=== PATIENT | male | born 1995 | race Caucasian/White ===

== ENCOUNTER 2020-07-01 00:23 | Emergency (ER) | payer OTHER ==
[~2020-07-01] VITALS: Ht 177.8 cm; Wt 61.7 kg
[2020-07-01 03:47] VITALS: BP 133/77
== END 2020-07-01 04:04 | disposition home or self-care (01) ==
LOC: M ED 00:23
DX: F32.0 Major depressive disorder, single episode, mild (principal)

== ENCOUNTER 2020-08-04 09:47 | Emergency (ER) | payer OTHER ==
[~2020-08-04] VITALS: Ht 177.8 cm; Wt 64.5 kg
--- OUTSIDE RECORDS SUMMARY | 2020-08-04 09:55 | CCD ---
Author Author [facility] Organization [facility] Address Unknown Phone Unavailable Support Name Relationship Address Phone [facility] Next Of Kin [address] [place] [address] Unavailable WAGER, FC SGT [place] [address] [address] [address] MATHEW ABURTO Next Of Kin [place], [place] Next Of Kin Unknown Unavailable FAUSTINO ELIZABETH Next Of Kin [address] [place] [address] FAUSTINO BEAVER Next Of Kin [address] [phone] Re-disclosure Warning The records that you are about to access may contain information from federally-assisted alcohol or drug abuse programs. If such information is present, then the following federally mandated warning applies: This information has been disclosed to you from records protected by federal confidentiality rules (42 CFR part 2). The federal rules prohibit you from making any further disclosure of this information unless further disclosure is expressly permitted by the written consent of the person to whom it pertains or as otherwise permitted by 42 CFR part 2. A general authorization for the release of medical or other information is NOT sufficient for this purpose. The Federal rules restrict any use of the information to criminally investigate or prosecute any alcohol or drug abuse patient.The records that you are about to access may contain highly sensitive health information, the redisclosure of which is protected by Article 27-F of the [facility] Public Health law. If you continue you may have access to information: Regarding HIV / AIDS; Provided by facilities licensed or operated by the [facility] Office of Mental Health; or Provided by the [facility] Office for People With Developmental Disabilities. If such information is present, then the following [facility] mandated warning applies: This information has been disclosed to you from confidential records which are protected by state law. State law prohibits you from making any further disclosure of this information without the specific written consent of the person to whom it pertains, or as otherwise permitted by law. Any unauthorized further disclosure in violation of state law may result in a fine or retirement sentence or both. A general authorization for the release of medical or other information is NOT sufficient authorization for further disc losure. Insurance Providers Payer name Policy type / Coverage type Policy ID Covered constitution party ID Covered constitution party's relationship to christine Policy Christine Plan Information [facility] ACTIVE DUTY [id number] SP [id number] [place] MEDICAID [id number] [facility] 7 [id number] Lu[place] Medicaid F [id number] SELF [id number] SELF PAY 2 UNAVAILABLE 1 UNAVAILA BLE [facility] SELFINSURE 1 [id number] EXC PLANS 1 [id number] [facility] [id number] SELF PAY UNAVAILABLE UNAVAILA BLE LUAN [facility]P FHP UNAVAILABLE SP UN AVAILABLE
[2020-08-04] MEDS ORDERED: NAPR220C14 PO (09:58)
[2020-08-04] MEDS ORDERED: NS 1,000 ML IV ONE (10:15)
[2020-08-04 10:44] LABS: APPEARANCE, URINE CLOUDY (CLEAR); BACTERIA, URINE AUTO 1+ (NEGATIVE); BILIRUBIN, URINE AUTO NEGATIVE (NEGATIVE); BLOOD, URINE BLOOD 3+ (NEGATIVE); COLOR, URINE AMBER (YELLOW); GLUCOSE, URINE (UA) AUTO 1+ mg/dL (NEGATIVE); KETONE, URINE AUTO NEGATIVE (NEGATIVE); LEUKOCYTE ESTERASE, URINE AUTO 3+ (NEGATIVE); MUCUS, URINE MODERATE (NEGATIVE); NITRITE, URINE AUTO NEGATIVE (NEGATIVE); PROTEIN, URINE AUTO 2+ mg/dL (NEGATIVE); RBC, URINE AUTO TNTC /HPF (0-3); RENAL EPITHELIAL CELLS 2 /HPF; SPECIFIC GRAVITY URINE AUTO 1.028 (1.002-1.035); SQUAMOUS EPITHELIAL CELL UR AU 1 /HPF (0-6); TRANSITIONAL EPITHELIAL AUTO 3 /HPF; WBC, URINE AUTO TNTC /HPF (0-3)
[2020-08-04] MEDS ORDERED: ISOVUE-370 76% 100ML VIAL As Ordered ONE (10:44)
[2020-08-04 10:46] LABS: BASO % 0.2 % (0.0-1.0); EOS % 0.2 % (0.0-3.0); HEMATOCRIT 43.6 % (42.0-52.0); HEMOGLOBIN 14.6 g/dl (13.5-17.5); LYMPH # 1.3 10^3/uL (1.5-5.0); LYMPH % 9.9 % (24.0-44.0); MEAN CORPUSCULAR HEMOGLOBIN 30.7 pg (27.0-33.0); MEAN CORPUSCULAR HGB CONC 33.5 g/dl (32.0-36.5); MEAN CORPUSCULAR VOLUME 91.6 fl (80.0-96.0); MONO % 7.9 % (0.0-5.0); NEUTROPHILS # 10.3 10^3/uL (1.5-8.5); NEUTROPHILS % 81.6 % (36.0-66.0); PLATELET COUNT, AUTOMATED 188 10^3/uL (150-450); RED BLOOD COUNT 4.76 10^6/uL (4.30-6.10); WHITE BLOOD COUNT 12.7 10^3/uL (4.0-10.0)
[2020-08-04 10:55] LABS: INR 1.15; PROTHROMBIN TIME 14.9 SECONDS (12.5-14.3)
[2020-08-04 10:56] LABS: PARTIAL THROMBOPLASTIN TIME 29.1 SECONDS (24.2-38.5)
--- NOTE | 2020-08-04 11:06 | REP ---
INDICATION: trauma 3 days ago right side/flank, hematuria, RUQ pain COMPARISON: None TECHNIQUE: Axial contrast enhanced images from the thoracic inlet to the upper abdomen using 100 ml Isovue 370 intravenous contrast material followed by CT of the abdomen and pelvis. Coronal and sagittal reformations obtained. This CT examination was performed using the following dose reduction techniques: Automated exposure control, adjustment of mA and/or kv according to the patient's size, and use of iterative reconstruction technique. FINDINGS: The bilateral lung craven are well aerated and clear. No consolidation/contusion, effusion, or pneumothorax. The mediastinum is normal including normal thoracic aorta, pulmonary vasculature, and heart/pericardium. No mediastinal injury or hematoma identified. Osseous structures are intact and without evidence for acute injury. IMPRESSION: Normal contrast-enhanced chest CT. No acute mediastinal or pleuroparenchymal process. No evidence for acute thoracic injury. <Electronically signed by Collin Faust > 08/04/20 [id number]
[2020-08-04 11:09] LABS: ALBUMIN 4.3 GM/DL (3.2-5.2); ALT/SGPT 27 U/L (12-78); BILIRUBIN,DIRECT 0.3 MG/DL (0.0-0.2); BILIRUBIN,TOTAL 0.9 MG/DL (0.2-1.0); LIPASE 124 U/L (73-393); SALICYLATE LEVEL < 1.7 MG/DL (5.0-30.0); TOTAL PROTEIN 7.7 GM/DL (6.4-8.2)
--- NOTE | 2020-08-04 11:10 | REP ---
INDICATION: trauma 3 days ago right side/flank, hematuria, RUQ pain. COMPARISON: None TECHNIQUE: Axial contrast-enhanced images from the lung bases to the pubic symphysis using 100 cc Isovue 370 intravenous contrast material. Coronal and sagittal reformations obtained. This CT examination was performed using the following dose reduction techniques: Automated exposure control, adjustment of mA and/or kv according to the patient's size, and the use of iterative reconstruction technique. FINDINGS: No evidence for solid organ injury. Liver, spleen, pancreas, gallbladder, bilateral adrenal glands and kidneys are normal. The enteric system including stomach, small, and large bowel appears normal. No evidence for obstruction or acute inflammatory process. Normal terminal ileum and appendix are identified in the right lower quadrant. Pelvis demonstrates collapsed/under distended bladder and age-appropriate prostate/seminal vesicles. No ascites. No free air. No intraperitoneal or retroperitoneal adenopathy. Abdominal aorta and vasculature appear normal. Musculoskeletal structures are intact and without acute osseous abnormality. IMPRESSION: No acute abdominopelvic pathology or trauma/injury appreciated. Kidneys appear normal. Bladder is collapsed/under distended. <Electronically signed by Collin Faust > 08/04/20 [id number]
--- OUTSIDE RECORDS SUMMARY | 2020-08-04 11:35 | CCD ---
Author Author [facility] Organization [facility] Address Unknown Phone Unavailable Support Name Relationship Address Phone [facility] Next Of Kin [address] [place] [address] Unavailable WAGER, FC SGT Next [place] [address] [address] [address] MATHEW ABURTO Next [place] Kin [place] Next Of Kin Unknown Unavailable FAUSTINO ELIZABETH Next Of Kin [address] [place] [address] FAUSTINO BEAVER Next Of Kin [address] [phone] Re-disclosure Warning The records that you are [...] is protected by Article 27-F of the [facility] Public Health law. If you continue you may have access to information: Regarding HIV / AIDS; Provided by facilities licensed or operated by the [facility] Office of Mental Health; or Provided by the [facility] Office for People With Developmental Disabilities. If such information is present, then the following [facility] mandated warning applies: This information has been [...] law may result in a fine or detention sentence or both. A general authorization for the release of medical or other information is NOT sufficient authorization for further disc losure. Insurance Providers Payer name Policy type / Coverage type Policy ID Covered libertarian ID Covered libertarian's relationship to christine Policy Christine Plan Information [facility] ACTIVE DUTY [id number] SP [id number] [place] MEDICAID [id number] [facility] 7 [id number] Lu[place] Medicaid F [id number] SELF [id number] SELF PAY 2 UNAVAILABLE 1 UNAVAILA BLE [facility] SELFINSURE 1 3 [id number] EXC PLANS 1 [id number] [facility] [id number] SELF PAY UNAVAILABLE UNAVAILA BLE LUAN CHP FHP UNAVAILABLE SP UN AVAILABLE
[2020-08-04] MEDS ORDERED: cefTRIAXone SOD 1 GM in D5W MINI-BAG PLUS 50 ML IV ONE (11:45)
[2020-08-04] MEDS ORDERED: CEFD300CAP PO (12:31)
[2020-08-04 12:38] VITALS: BP 116/68
== END 2020-08-04 12:40 | disposition home or self-care (01) ==
LOC: M ED 09:47
DX: S39.91XA Unspecified injury of abdomen, initial encounter (principal); V00.311A Fall from snowboard, initial encounter; Y92.9 Unspecified place or not applicable; Y93.23 Activity, snow (alpine) (downhill) skiing, snowboarding, sledding, tobogganing and snow tubing; Y99.9 Unspecified external cause status; N39.0 Urinary tract infection, site not specified; R31.9 Hematuria, unspecified; G89.29 Other chronic pain; M54.9 Dorsalgia, unspecified; F33.9 Major depressive disorder, recurrent, unspecified
CPT/HCPCS: 71260; 74177; 80047; 80076; 81001; 83690; 85025; 85610; 85730; 86850; 86900; 86901; 96361; 96365; 99284; G0480; J0696; Q9967

== ENCOUNTER 2020-08-13 19:20 | Emergency (ER) | payer OTHER ==
[~2020-08-13] VITALS: Ht 177.8 cm; Wt 66.7 kg
[~2020-08-13 19:20] MED LIST: CEFD300CAP PO; NAPR220C14 PO
--- OUTSIDE RECORDS SUMMARY | 2020-08-13 19:29 | CCD ---
Author Author [facility] Organization [facility] Address Unknown Phone Unavailable Support Name Relationship Address Phone [facility] Next Of Kin [address] [place] [address] Unavailable WAGER, FC SGT [place] [address] [address] [address] MATHEW ABURTO Next [place] Kin [place] Next Of Kin Unknown Unavailable FAUSTINO ELIZABETH Next Of Kin [address] [place] [address] FAUSTINO BEAVER Next Of Kin [address] [phone] Re-disclosure Warning The records that you are [...] is protected by Article 27-F of the [facility] Public Health law. If you continue you may have access to information: Regarding HIV / AIDS; Provided by facilities licensed or operated by the [facility] Office of Mental Health; or Provided by the [facility] Office for People With Developmental Disabilities. If such information is present, then the following [facility] mandated warning applies: This information has [...] type / Coverage type Policy ID Covered democrat ID Covered democrat's relationship to christine Policy Christine Plan Information [facility] ACTIVE DUTY [id number] SP [id number] LU[place] MEDICAID [id number] [facility] 7 [id number] Lu[place] Medicaid F [id number] SELF [id number] SELF PAY 2 UNAVAILABLE 1 UNAVAILA BLE [facility] SELFINSURE 1 [id number] EXC PLANS 1 [id number] [facility] [id number] SELF PAY UNAVAILABLE UNAVAILA BLE [facility]P FHP UNAVAILABLE SP UN AVAILABLE
[2020-08-13 20:33] LABS: HEMATOCRIT 42.6 % (42.0-52.0); HEMOGLOBIN 14.4 g/dl (13.5-17.5); MEAN CORPUSCULAR HEMOGLOBIN 29.9 pg (27.0-33.0); MEAN CORPUSCULAR HGB CONC 33.8 g/dl (32.0-36.5); MEAN CORPUSCULAR VOLUME 88.4 fl (80.0-96.0); PLATELET COUNT, AUTOMATED 307 10^3/uL (150-450); RED BLOOD COUNT 4.82 10^6/uL (4.30-6.10); WHITE BLOOD COUNT 7.2 10^3/uL (4.0-10.0)
--- NOTE | 2020-08-13 21:07 | ECGEPIP ---
[facility] - ED Test Date: 2020-08-13 Pat Name: GLADIS TAYLOR Department: Room: - Gender: Male Manager Mechanical: : 1995 Requested By: KENNEY Putnam Order Number: [id number] Reading MD: Guy Heath Measurements Intervals [place] Rate: 72 P: 52 MA: 152 QRS: 70 QRSD: 98 T: 58 QT: 379 QTc: 417 Interpretive Statements SINUS RHYTHM WITH SINUS ARRHYTHMIA INCOMPLETE RIGHT BUNDLE BRANCH BLOCK BENIGN EARLY REPOLARIZATION NO PRIORS FOR COMPARISON Electronically Signed on 08-13-2020 21:06:35 EST by Guy Heath
[2020-08-13 21:10] LABS: AMPHETAMINES LEVEL URINE NEGATIVE (NEGATIVE); BARBITURATES URINE NEGATIVE (NEGATIVE); BENZODIAZEPINES URINE NEGATIVE (NEGATIVE); CANNABINOIDS URINE NEGATIVE (NEGATIVE); COCAINE METABOLITE URINE NEGATIVE (NEGATIVE); METHADONE URINE NEGATIVE (NEGATIVE); OPIATES URINE NEGATIVE (NEGATIVE); PHENCYCLIDINE URINE NEGATIVE (NEGATIVE)
[2020-08-13 21:21] LABS: ALBUMIN 4.3 GM/DL (3.2-5.2); ALT/SGPT 30 U/L (12-78); BILIRUBIN,DIRECT 0.2 MG/DL (0.0-0.2); BILIRUBIN,TOTAL 0.4 MG/DL (0.2-1.0); BLOOD UREA NITROGEN 20 MG/DL (7-18); CALCIUM LEVEL 9.3 MG/DL (8.5-10.1); CARBON DIOXIDE LEVEL 30 MEQ/L (21-32); CHLORIDE LEVEL 103 MEQ/L (98-107); CREATININE FOR GFR 0.97 MG/DL (0.70-1.30); ETHYL ALCOHOL (ETHANOL) < 0.003 % (0.000-0.010); GLOMERULAR FILTRATION RATE > 60.0 (>60); GLUCOSE, FASTING 116 MG/DL (70-100); POTASSIUM SERUM 3.9 MEQ/L (3.5-5.1); SALICYLATE LEVEL < 1.7 MG/DL (5.0-30.0); SODIUM LEVEL 138 MEQ/L (136-145); TOTAL PROTEIN 7.9 GM/DL (6.4-8.2)
[2020-08-13 21:22] LABS: ACETAMINOPHEN LEVEL < 2.0 UG/ML (10.0-30.0)
[2020-08-13 22:16] LABS: RSV AMPLIFICATION NEGATIVE (NEGATIVE)
[2020-08-14 00:32] VITALS: BP 116/78
--- OUTSIDE RECORDS SUMMARY | 2020-08-14 00:42 | CCD ---
Author Author [facility] Organization [facility] Address Unknown Phone Unavailable Support Name Relationship Address Phone [facility] Next Of Kin [address] [place] [address] Unavailable WAGER, FC SGT [place] [address] [address] [address] MATHEW ABURTO Next Of Kin [place], [place] Next Of Kin Unknown Unavailable FAUSTINO ELIZABETH Next Of Kin [address] [place] [address] FAUSTINO BEAVER Next Of Kin [address] [phone] Re-disclosure Warning The records that you are [...] of the [facility] Public Health law. If you continue you may have access to information: Regarding HIV / AIDS; Provided by facilities licensed or operated by the [facility] Office of Mental Health; or Provided by the [facility] Office for People With Developmental Disabilities. If such information is present, then the following [facility] mandated warning applies: This information has been [...] law may result in a fine or nursing home sentence or both. A general authorization for the release of medical or other information is NOT sufficient authorization for further disc losure. Insurance Providers Payer name Policy type / Coverage type Policy ID Covered alliance party ID Covered alliance party's relationship to christine Policy Christine Plan Information [facility] ACTIVE DUTY [id number] SP [id number] LUAN MEDICAID [id number] [facility] 7 [id number] Lu[place] Medicaid F [id number] SELF [id number] SELF PAY 2 UNAVAILABLE 1 UNAVAILA BLE [facility] SELFINSURE 1 [id number] EXC PLANS 1 [id number] [facility] [id number] SELF PAY UNAVAILABLE UNAVAILA BLE [facility]AN [facility]P FHP UNAVAILABLE SP UN AVAILABLE
== END 2020-08-14 00:39 ==
LOC: M ED 19:20
DX: F32.9 Major depressive disorder, single episode, unspecified (principal); R45.851 Suicidal ideations; I45.19 Other right bundle-branch block; G89.29 Other chronic pain; M54.9 Dorsalgia, unspecified; Z79.899 Other long term (current) drug therapy
CPT/HCPCS: 80048; 80076; 80307; 84443; 85027; 87631; 93005; 99284; G0480

== ENCOUNTER 2020-09-05 21:48 | Emergency (ER) | payer OTHER ==
[~2020-09-05] VITALS: Ht 177.8 cm; Wt 63.6 kg
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
[2020-09-05] MEDS ORDERED: REME15TA2 PO (21:57)
[2020-09-05] MEDS ORDERED: PERCOCET 5MG/325MG TAB PO ONE (22:30)
[2020-09-05] MEDS ORDERED: BACLOFEN 10 MG TAB PO ONE (22:30)
--- NOTE | 2020-09-05 22:50 | REPVR ---
PROCEDURE INFORMATION: Exam: XR Right Tibia and Fibula Exam date and time: 09/05/2020 10:20 PM Age: 24 years old Clinical indication: Other: Fell snowboarding TECHNIQUE: Imaging protocol: XR Right tibia and fibula. Views: 2 views. COMPARISON: No relevant prior studies available. FINDINGS: Bones/joints: Normal. No fracture. Soft tissues: Normal. IMPRESSION: Negative right tibia and fibula. Electronically signed by: Pedro Luis Titus On 09/05/2020 22:50:09 PM
--- NOTE | 2020-09-05 22:50 | REPVR ---
PROCEDURE INFORMATION: Exam: XR Right Femur Exam date and time: 09/05/2020 10:20 PM Age: 24 years old Clinical indication: Other: Fell snowboarding TECHNIQUE: Imaging protocol: XR Right femur. Views: 2 views. COMPARISON: No relevant prior studies available. FINDINGS: Bones/joints: Unremarkable. No acute fracture. Soft tissues: Unremarkable. IMPRESSION: Negative right femur. Electronically signed by: Pedro Luis Titus On 09/05/2020 22:50:41 PM
--- OUTSIDE RECORDS SUMMARY | 2020-09-05 22:59 | CCD ---
Author Author [facility] Organization [facility] Address Unknown Phone Unavailable Care Team Providers Care Knifer Up Name Role Phone Colon, Rickie Unavailable Unavailable [...] is protected by Article 27-F of the [place] Public Health law. If you continue you may have access to information: Regarding HIV / AIDS; Provided by facilities licensed or operated by the [facility] Office of Mental Health; or Provided by the [facility] Office for People With Developmental Disabilities. If such information is present, then the following [facility] mandated warning applies: This information [...] allergy No Known Allergies No Known Allergies [facility] Encounters Encounter Providers Location Date Indications Data Source(s ) Outpatient Attender: Ronna Shepardmitter: Rickie ColonConsultant: Rickie Colon 08/14/2020 01:55:00 AM EST Involuntary [facility] Involuntary Inpatient Attender: Rickie ColonAdmitter: Rickie Colon 08/14/2020 01:55:00 AM EST - 08/20/2020 12:19:00 PM EST Involuntary [facility] Involuntary Patient discharged. Outpatient Attender: Ronna Shepardmitter: Rickie ColonConsultant: Rickie Colon 08/14/2020 01:55:00 AM EST Involuntary [facility] Involuntary Outpatient Attender: Ronna Shepardmitter: Rickie ColonConsultant: Rickie Colon 08/14/2020 01:55:00 AM EST Involuntary [facility] Involuntary Outpatient Attender: Morgan AshleyAdmitter: Rickie ColonConsultant: Rickie Colon 08/14/2020 01:55:00 AM EST Involuntary [facility] Involuntary Outpatient Attender: Ronna Shepardmitter: Rickie ColonConsultant: Rickie Colon 08/14/2020 01:55:00 AM EST Involuntary [facility] Involuntary Outpatient Attender: Dannie Carter MDA dmitter: Rickie ColonConsultant: Rickie Colon 08/14/2020 01:55:00 AM EST Involuntary [facility] Involuntary Outpatient Attender: Dannie Carter TIMOTHY dmitter: Rickie ColonConsultant: Rickie Colon 08/14/2020 01:55:00 AM EST Involuntary [facility] Involuntary Outpatient Attender: Ronna Jason PAdmitter: Rickie ColonConsultant: Rickie Colon 08/14/2020 01:55:00 AM EST Involuntary [facility] Involuntary Insurance Providers Payer name Policy type / Coverage type Policy ID Covered libertarian ID Covered libertarian's relationship to christine Policy Christine Plan Information [employer] [id number] SP [id number] SELF PAY [facility] [id number] SP [id number] LUAN MEDICAID [id number] Sylvia 7 [id number] Luan Medicaid F [id number] SELF [id number] SELF PAY 2 UNAVAILABLE 1 UNAVAILA BLE [facility] SELFINSURE 1 [id number] EXC PLANS 1 [id number] [employer] [place] [id number] SELF PAY UNAVAILABLE UNAVAILA BLE LUAN CHP FHP UNAVAILABLE SP UN AVAILABLE Problems, Conditions, and Diagnoses Code Display Name Description Problem Type Effective Dates Data Source(s) G89.29 Other chronic pain G89.29 - Other chronic pain Diagnos is 08/14/2020 01:55:00 AM EST [facility] M54.9 Dorsalgia, unspecified M54.9 - Dorsalgia, unspecified Diagnosis 08/14/2020 01:55:00 AM EST [facility] F41.1 Generalized anxiety disorder F41.1 - Generalized anxiety disorder Diagnosis 08/14/2020 01:55:00 AM EST [facility] F84.0 Autistic disorder F84.0 - Autistic disorder Diagnosis 08/14/2020 01:55:00 AM EST [facility] F43.10 Post-traumatic stress disorder, unspecif ied F43.10 - Post-traumatic stress disorder, unspecified Diagnosis 08/14/2020 01:55:00 AM EST [facility] F33.2 Major depressive disorder, recurrent sev ere without psychotic features F33.2 - Major depressive disorder, recurrent severe without psychotic features Diagnosis 08/14/2020 01:55:00 AM [facility] Results ID Date Data Source [id number] 08/17/2020 04:26:00 [place] [address] HEALTH INFORMATION MANAGEMENT History and Physical Report : [id number] Signed Patient: Jessee Petty Acct:[id number] Unit: [id number] : 1995 Loc: [facility] Room/Bed: 810-A Age/Sex: 24 / M ADM [...] Clubbing, Cyanosis, Edema and Tenderness Skin: Present: [place] and Warm; Absent: Lesions and Rashes Neurological: [...] charges for this visit?: Yes Inpt Consult [id number] Cons Level 2: Yes Signed By:Morgan Ashley <<Signature on File>> Signed Date/Time: 08/17/20 163 Co-Signer: Johann Nguyen MD Co-Signed Date/Time: 08/17/202012 Initializing User: Morgan Ashley NP 08/17/20 1626 1626 162 Name Value Range Interpretation Code Description Data Hope rce(s) Supporting Document(s) ID Date Data Source [id number] 08/14/2020 01:08:00 PM [facility] [address] [place] [address] [id number] HE[facility] INFORMATION MANAGEMENT 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 Jessee was brought to [facility] by his NCO whom he reports asked [...] [place]. Jessee was raised in [place] and joined the after completing one year of college. He reports he has been at [employer] for a little over a year and [...] of Aspergers. - Collateral Information Collateral Information: Sharepoint Manager spoke with nurse immigration case manager (ASHLEY) through [employer] who reports that Jessee has been in [...] while on deployment for one month in [place]. She reports this was his only deployment. Information Obtained From: Nurse immigration case manager - Directives Does the Patient [...] Any History?: Yes (current ative duty at [employer]) - Outside Activity Are You Involved in Any Community Service?: No Do You Consider Your self a Social Person?: No (reports intence social anxiety) Any Interests or Hobbies you do for fun?: none Are you part of any moravian/spirtual community?: No - Current Living/Relationship History Current Living Arrangement: [employer] OK to Return Home: Yes Weapons in household: No Currently in a Relationship?: No Ever Been ?: No Any Children?: denies - Family History Where Were You Born/Raised[place] Who Was in Home?: Mother, Father, Sister(s), [...] none identified - Recommendations Recommendations for Treatment: junior underwriter recommends that Jessee continue with [facility] for ongoing mental health services. Discharge plan: will return to base via escort. Signed By:Adrianna Pedraza <<Signature on File>> Signed Date/Time: 08/14/20 1355 Co-Signer: Co-Signed Date/Time: Initializing User: Adrianna Pedraza LMSW 08/14/20 1308 1308 1308 Name Value Range Interpretation Code Description Data Hope rce(s) Supporting Document(s) ID Date Data Source [id number] 08/13/2020 09:22:00 PM EST [facility] Name Value Range Interpretation Code Description Data Hope rce(s) Supporting Document(s) SARS coronavirus 2 RNA [Presence] in Res piratory specimen by JIMY with probe detection NEGATIVE [facility] This lab was ordered by [facility] a nd reported by [facility]. Procedure
[2020-09-05 23:50] VITALS: BP 117/55
[2020-09-06] MEDS ORDERED: OXYCODONE/APAP 5MG/325MG(BULK FOR ED) 1 TABLET PO ONE
== END 2020-09-06 00:15 | disposition home or self-care (01) ==
LOC: M ED 21:48
DX: S80.911A Unspecified superficial injury of right knee, initial encounter (principal); X58.XXXA Exposure to other specified factors, initial encounter; Y92.89 Other specified places as the place of occurrence of the external cause; Y93.23 Activity, snow (alpine) (downhill) skiing, snowboarding, sledding, tobogganing and snow tubing; Y99.9 Unspecified external cause status; F32.9 Major depressive disorder, single episode, unspecified